=== PATIENT | female | born 1990 | race Caucasian/White ===

== ENCOUNTER → 2020-02-05 22:46 | Observation (INO) ==
[2020-02-05 19:09] LABS: Apearance,Urine CLEAR (Clear); Bilirubin,Urine Negative (Negative); Blood, Urine Negative (Negative); Glucose,Urine (UA) Negative (Negative); Ketones,Urine Negative (Negative); Mucus,Urine Occasional /LPF (Occasional); Nitrite,Urine Negative (Negative); Protein,Urine Negative; RBC,Urine 3 /HPF (0-4); Squamous Epithelial Cell,Urine Few /HPF (0-10); Urine Color Yellow (Yellow); Urine Urobilinogen < 2.0 EU/DL (0.2-1.0); WBC,Urine 1 /HPF (0-6)
[~2020-02-05 22:46] MED LIST: BUTORPHANOL 2 MG/ML VIAL IM ONE; NIFEdipine 10 MG CAPSULE PO ONE; PROMETHAZINE 25 MG/1 ML VIAL IM ONE
== END | disposition home or self-care (01) ==
LOC: N.LD
PROVIDERS: ADMIT Specialist; ATTEND Specialist

== ENCOUNTER 2020-03-01 05:25 | Inpatient (IN) ==
[2020-03-01] MEDS ORDERED: ONDANSETRON 4 MG/2 ML VIAL IV PRN ×2 (05:35→14:14)
[2020-03-01] MEDS ORDERED: BUTORPHANOL 2 MG/ML VIAL IV PRN (05:35)
[2020-03-01] MEDS ORDERED: MEPERIDINE 50 MG/1 ML VIAL IV PRN (05:35)
[2020-03-01] MEDS ORDERED: LACTATED RINGERS 1,000 ML IV SCH (06:00)
[2020-03-01] MEDS ORDERED: OXYTOCIN/LR 20 UNIT/1,000 ML BAG IV SCH (06:00)
[2020-03-01] MEDS: CLINDAMYCIN INJ 900 MG in PREMIX 1 EACH IV SCH ×2 (06:10→13:28)
[2020-03-01 06:11] LABS: Basophils % 0.2 % (0.0-0.8); Eosinophils # 0.1 10*3/uL (0.0-0.87); Hematocrit 33.5 VOL% (35.7-47.0); Immature Granulocytes % 0.5 %; Immature Granulocytes Absolute 0.03 #; Lymphocytes # 2.4 10*3/uL (1.4-4.0); Lymphocytes % 38.1 % (21.3-54.2); Mean Corpuscular HGB Conc 32.8 GM/DL (32-36); Mean Corpuscular Volume 85.2 FL (87-102); Monocytes % 9.4 % (1.7-12.7); Neutrophils % 50.8 % (38.7-73.9); Platelet Count 179 T/CUMM (130-400); Red Blood Count 3.93 MC/CUMM (3.8-5.5); Red Cell Distribution Width 12.4 % (9.3-17.3); White Blood Count 6.2 T/CUMM (4-12)
[2020-03-01 06:50] LABS: Albumin 2.6 G/DL (3.4-5.0); Bilirubin,Total 0.4 MG/DL (0.2-1.0); Calcium 8.4 MG/DL (8.5-10.1); Osmolality,Calculated 268.8 MOS/KG (273-304); Total Protein 6.3 G/DL (6.4-8.3)
[2020-03-01] MEDS ORDERED: hydrOXYzine HCL 25 MG/1 ML VIAL IM PRN (07:58)
[2020-03-01] MEDS ORDERED: PROMETHAZINE 25 MG/1 ML VIAL IM ONE (07:58)
[2020-03-01] MEDS ORDERED: diphenhydrAMINE 50 MG/1 ML VIAL IV PRN ×2 (07:58)
[2020-03-01] MEDS ORDERED: LACTATED RINGERS 1,000 ML IV ONE (07:58)
[2020-03-01] MEDS ORDERED: CITRIC ACID/SODIUM CITRATE 30 ML UDCUP PO ONE (07:58)
[2020-03-01] MEDS ORDERED: NALOXONE 0.4 MG/ML VIAL IV PRN (07:58)
[2020-03-01] MEDS ORDERED: ePHEDrine 50 MG/ML AMP IV PRN (07:58)
[2020-03-01] MEDS ORDERED: FAMOTIDINE 20 MG/2 ML VIAL IV ONE (07:58)
[2020-03-01] MEDS ORDERED: fentaNYL 2 MCG/ROPIV 0.2% EPID 100 ML EPIDURAL SCH (08:00)
[2020-03-01 09:37] LABS: Apearance,Urine CLEAR (Clear); Bilirubin,Urine Negative (Negative); Blood, Urine Negative (Negative); Glucose,Urine (UA) Negative (Negative); Ketones,Urine Negative (Negative); Mucus,Urine Occasional /LPF (Occasional); Nitrite,Urine Negative (Negative); Protein,Urine Negative; Urine Color Yellow (Yellow); Urine Specific Gravity 1.011 (1.001-1.035); Urine Urobilinogen < 2.0 EU/DL (0.2-1.0); WBC,Urine <1 /HPF (0-6)
[2020-03-01] MEDS ORDERED: miSOPROStoL 200 MCG TABLET ONE (13:25)
[2020-03-01] MEDS ORDERED: TRANEXAMIC ACID 1,000 MG/10 ML VIAL ONE (13:25)
[2020-03-01] MEDS ORDERED: LIDOCAINE 1% 50 ML VIAL ONE (13:26)
[2020-03-01] MEDS ORDERED: CARBOPROST TROMETHAMINE 250 MCG/ML AMP IM ONE (13:26)
[2020-03-01] MEDS ORDERED: METHYLERGONOVINE 0.2 MG/1 ML AMP ONE (13:26)
[2020-03-01] MEDS ORDERED: HYDROCORTISONE 2.5% RECTAL CREAM 30 GM TUBE TOP PRN (14:14)
[2020-03-01] MEDS ORDERED: BENZOCAINE 20%/MENTHOL 0.5% SPRAY 56 GM CAN TOP PRN (14:14)
[2020-03-01] MEDS ORDERED: BISACODYL 10 MG SUPP RECTAL PRN (14:14)
[2020-03-01] MEDS ORDERED: ACETAMINOPHEN 325 MG TABLET PO PRN (14:14)
[2020-03-01] MEDS ORDERED: WITCH HAZEL PADS 100/JAR TOP PRN (14:14)
[2020-03-01] MEDS ORDERED: MEASLES/MUMPS/RUBELLA VACCINE 0.5 ML VIAL SUBCUT ONE (14:14)
[2020-03-01] MEDS ORDERED: RHO(D) IMMUNE GLOBULIN 300 MCG SYRINGE IM ONE (14:14)
[2020-03-01] MEDS ORDERED: DIPH/TET/ACEL PERT BOOSTER VACCINE 0.5 ML VIAL IM ONE (14:14)
[2020-03-01] MEDS ORDERED: OXYTOCIN/LR 20 UNIT/1,000 ML BAG IV ONE (14:14)
[2020-03-01] MEDS ORDERED: LANOLIN 50% CREAM 0.3 OZ TUBE TOP PRN (14:14)
[2020-03-01] MEDS ORDERED: oxyCODONE/ACETAMINOPHEN 5-325 MG TABLET PO PRN (14:14)
[2020-03-01] MEDS: IBUPROFEN 800 MG TABLET PO PRN (19:39)
[2020-03-01] MEDS: DOCUSATE SODIUM 100 MG CAPSULE PO SCH (20:44)
[2020-03-02 04:46] LABS: Basophils % 0.1 % (0.0-0.8); Eosinophils # 0.1 10*3/uL (0.0-0.87); Eosinophils % 1.3 % (0.00-10.9); Hematocrit 28.4 VOL% (35.7-47.0); Hemoglobin 9.1 GM/DL (12.0-16.0); Immature Granulocytes % 0.4 %; Immature Granulocytes Absolute 0.03 #; Lymphocytes # 2.4 10*3/uL (1.4-4.0); Mean Corpuscular Volume 87.1 FL (87-102); Monocytes % 7.5 % (1.7-12.7); Neutrophils % 59.7 % (38.7-73.9); Platelet Count 164 T/CUMM (130-400); Red Blood Count 3.26 MC/CUMM (3.8-5.5); Red Cell Distribution Width 12.7 % (9.3-17.3); White Blood Count 7.7 T/CUMM (4-12)
[2020-03-02] MEDS: DOCUSATE SODIUM 100 MG CAPSULE PO SCH ×3 (09:21→23:54)
[2020-03-02] MEDS: FERROUS SULFATE 325 MG TABLET PO SCH (09:21)
[2020-03-02] MEDS: oxyCODONE/ACETAMINOPHEN 5-325 MG TABLET PO PRN ×2 (09:21→19:48)
[2020-03-02] MEDS: IBUPROFEN 800 MG TABLET PO PRN (13:21)
[2020-03-03] MEDS: IBUPROFEN 800 MG TABLET PO PRN (01:15)
[2020-03-03] MEDS: oxyCODONE/ACETAMINOPHEN 5-325 MG TABLET PO PRN (04:18)
[2020-03-03] MEDS: FERROUS SULFATE 325 MG TABLET PO SCH (08:40)
[2020-03-03] MEDS: DOCUSATE SODIUM 100 MG CAPSULE PO SCH (08:40)
[2020-03-03 10:47] VITALS: BP 112/67
== END 2020-03-03 10:40 | disposition home or self-care (01) | DRG 560 ==
LOC: N.LD 05:25 → N.OB 16:30
PROVIDERS: ADMIT Specialist; ATTEND Specialist